=== PATIENT | male | born 1950 | race Caucasian/White ===

== ENCOUNTER 2017-08-14 10:49 | Outpatient (CLI) | payer MEDICARE ==
--- NOTE | 2017-08-14 12:38 | XRAY Report ---
THREE VIEW RIGHT HAND: 08/14/2017 CLINICAL INDICATION: Pain, trauma. FINDINGS: AP, lateral, and oblique views of the right hand demonstrate no evidence of acute fracture or dislocation. Osteoarthritis is present. No radiopaque foreign body is seen in the soft tissues. IMPRESSION: OSTEOARTHRITIS. JOB #: [id number] EXT JOB #:[id number]
== END 2017-08-14 10:50 | disposition home or self-care (01) ==
LOC: DI.S 10:49
PROVIDERS: ATTEND Physician Assistant
DX: M19.041 Primary osteoarthritis, right hand (principal)

== ENCOUNTER 2019-01-16 10:31 | Outpatient (CLI) | payer MEDICARE, OTHER ==
[2019-01-16] MEDS ORDERED: IOVERSOL 320 50 ML VIAL ONE (10:41)
[2019-01-16] MEDS ORDERED: IOPAMIDOL-300 100 ML VIAL ONE ×2 (10:41)
[2019-01-16 10:52] LABS: BASOPHILS % (AUTO) 0.9 %; EOSINOPHILS % (AUTO) 0.2 %; HGB - HEMOGLOBIN 14.3 g/dL (14.0-18.0); LYMPHOCYTES # (AUTO) 0.6 10^3/uL (1.5-3.5); LYMPHOCYTES % (AUTO) 10.6 %; MEAN CORPUSCULAR HEMOGLOBIN 29.1 pg (27.0-31.0); MEAN CORPUSCULAR HGB CONC 33.9 g/dL (32.0-36.0); MEAN CORPUSCULAR VOLUME 85.8 fL (80.0-94.0); MEAN PLATELET VOLUME 8.1 fL (7.4-11.4); MONOCYTES # (AUTO) 0.8 10^3/uL (0.0-1.0); MONOCYTES % (AUTO) 13.9 %; NEUTROPHILS # (AUTO) 4.3 10^3/uL (1.5-6.6); NEUTROPHILS % (AUTO) 74.4 %; PLT - PLATELET COUNT 188 10^3/uL (130-450); RED BLOOD COUNT 4.92 10^6/uL (4.70-6.10); RED CELL DISTRIBUTION WIDTH 13.8 % (12.0-15.0); WHITE BLOOD COUNT 5.8 x10^3/uL (4.8-10.8)
[2019-01-16 11:04] LABS: ALBUMIN 3.9 g/dL (3.2-5.5); ALBUMIN/GLOBULIN RATIO 1.1 (1.0-2.2); BILIRUBIN,TOTAL 0.8 mg/dL (0.2-1.0); TOTAL PROTEIN 7.3 g/dL (6.7-8.2)
[2019-01-16] MEDS ORDERED: IOPAMIDOL-300 100 ML VIAL IVP ONE (12:18)
[2019-01-16] MEDS ORDERED: IOVERSOL 320 50 ML VIAL PO ONE (12:19)
--- NOTE | 2019-01-16 12:47 | CT Report ---
Reason: ABDOMINAL PAIN,FATIGUE/MALAISE,CHANGE IN BOWEL HAB Procedure Date: 01/16/2019 Accession Number: [id number] / [id number] Procedure: CT - Abdomen/Pelvis W CPT Code: FULL RESULT: EXAM: CT ABDOMEN AND PELVIS EXAM DATE: 01/16/2019 12:15 PM. CLINICAL HISTORY: Abdominal pain, fatigue/malaise, change in bowel habits. COMPARISONS: None. TECHNIQUE: Routine helical CT imaging was performed through the abdomen and pelvis. IV contrast: 100 mL of Isovue-300 contrast. Enteric contrast: No. Reconstructions: Coronal and sagittal. In accordance with CT protocol optimization, one or more of the following dose reduction techniques were utilized for this exam: automated exposure control, adjustment of mA and/or KV based on patient size, or use of iterative reconstructive technique. FINDINGS: Lung Bases: Unremarkable. Liver: 15 mm water density cyst of the inferior right lobe of liver 28/3. No solid parenchymal lesions. Hepatic and portal veins are patent. Gallbladder/Bile Ducts: Gallbladder is surgically absent. There is no biliary ductal dilatation. Spleen: Normal. Pancreas: Normal. Adrenal Glands: Normal. Kidneys: Normal. No masses or hydronephrosis. Peritoneal Cavity/Bowel: Stomach and small bowel appear normal. There is diverticulosis noted of the descending and sigmoid colon. There is a thickening and inflammatory change measuring 2.5 cm surrounding a low rectosigmoid diverticulum just above the level of the urinary bladder, reference image 72 series 3, consistent with acute diverticulitis. No free air or focal fluid collection. The appendix is well visualized and normal. Pelvic Organs: Normal. The bladder and visualized pelvic organs are within normal limits. Vasculature: No aneurysms or other significant abnormality. Bones: No significant abnormality. Bilateral total hip arthroplasty components. Other: None. IMPRESSION: 1. Acute diverticulitis as described involving distal rectosigmoid colon. 2. Simple-appearing cyst within the liver incidentally noted. RADIA The call report notification system was initiated by Dr. Domingo David at 12:37 PM on 01/16/2019. The above call report findings were discussed with Nurse Patricia Posada by Dr. Domingo David at 12:45 PM on 01/16/2019.
== END 2019-01-16 10:32 | disposition home or self-care (01) ==
LOC: LAB 10:31
PROVIDERS: ATTEND Nurse Practitioner Family
DX: K57.32 Diverticulitis of large intestine without perforation or abscess without bleeding (principal); R10.32 Left lower quadrant pain; R53.83 Other fatigue; R19.4 Change in bowel habit
CPT/HCPCS: 36415; 74177; 80053; 85025; Q9967

== ENCOUNTER 2019-01-27 10:33 | Outpatient (CLI) | payer MEDICARE, OTHER ==
[2019-01-27] MEDS ORDERED: IOPAMIDOL-300 100 ML VIAL ONE (10:45)
[2019-01-27] MEDS ORDERED: IOPAMIDOL-300 50 ML VIAL ONE (10:45)
[2019-01-27] MEDS ORDERED: IOPAMIDOL-300 100 ML VIAL IVP ONE (11:57)
--- NOTE | 2019-01-27 15:48 | CT Report ---
Reason: DIVERTICULITIS OF SIGMOID COLON Procedure Date: 01/27/2019 Accession Number: [id number] / [id number] Procedure: CT - Abdomen/Pelvis W CPT Code: FULL RESULT: EXAM: CT ABDOMEN AND PELVIS EXAM DATE: 01/27/2019 11:55 AM. CLINICAL HISTORY: Diverticulitis of sigmoid colon. COMPARISONS: ABDOMEN/PELVIS W/ 01/16/2019 12:01 PM. TECHNIQUE: Routine helical CT imaging was performed through the abdomen and pelvis. IV contrast: 100 cc of Isovue-300 contrast. Enteric contrast: Yes. Reconstructions: Coronal and sagittal. In accordance with CT protocol optimization, one or more of the following dose reduction techniques were utilized for this exam: automated exposure control, adjustment of mA and/or KV based on patient size, or use of iterative reconstructive technique. FINDINGS: Lung Bases: Unremarkable. Liver: Stable 14 mm simple-appearing cyst of the inferior right lobe of liver. No solid lesions. Hepatic and portal veins are patent. Gallbladder/Bile Ducts: Gallbladder is surgically absent. There is no biliary ductal dilatation. Spleen: Normal. Pancreas: Normal. Adrenal Glands: Normal. Kidneys: Normal. No masses or hydronephrosis. Peritoneal Cavity/Bowel: Previous acute diverticulitis and surrounding inflammatory change has resolved by imaging in the interval. Previously inflamed diverticulum shows minimal residual wall thickening but no surrounding inflammatory change; reference series 3, axial images 71 through 73/series 5 coronal reconstruction image 39. There is stable diverticulosis noted elsewhere within the colon. Mild stool burden throughout. Stomach and small bowel appears normal. The appendix is well visualized and normal. Pelvic Organs: Normal. The bladder and visualized pelvic organs are within normal limits. Evaluation is slightly limited due to spray artifact from hip arthroplasty components. Vasculature: Not previously mentioned, there is mild aneurysmal dilatation of both common iliac arteries 16 mm on the right and 17 mm on the left. Bones: No significant abnormality. Other: None. IMPRESSION: 1. Near complete interval imaging resolution of acute sigmoid diverticulitis as described. 2. Mild aneurysmal dilatation of the common iliac arteries. 3. Stable simple appearing cyst inferior right lobe of liver. RADIA
== END 2019-01-27 10:34 | disposition home or self-care (01) ==
LOC: DI 10:33
PROVIDERS: ATTEND Nurse Practitioner Family
DX: K57.32 Diverticulitis of large intestine without perforation or abscess without bleeding (principal); I72.3 Aneurysm of iliac artery; K76.89 Other specified diseases of liver
CPT/HCPCS: 74177; Q9967

== ENCOUNTER 2019-01-30 14:07 | Outpatient (CLI) | payer MEDICARE, OTHER ==
--- NOTE | 2019-01-30 15:13 | XRAY Report ---
Reason: PAIN IN LT FOOT Procedure Date: 01/30/2019 Accession Number: [id number] / [id number] Procedure: XR - Foot 2 View LT CPT Code: FULL RESULT: EXAM: LEFT FOOT RADIOGRAPHY EXAM DATE: 01/30/2019 02:30 PM. CLINICAL HISTORY: Pain in left foot. COMPARISON: None. TECHNIQUE: 2 views. FINDINGS: Bones: Normal. No fractures or bone lesions. Joints: Normal. No subluxations. Soft Tissues: Normal. No soft tissue swelling. IMPRESSION: Normal foot radiography. RADIA
== END 2019-01-30 14:08 | disposition home or self-care (01) ==
LOC: DI 14:07
PROVIDERS: ATTEND Nurse Practitioner Family
DX: M79.672 Pain in left foot (principal)

== ENCOUNTER 2021-04-10 08:00 | Outpatient (CLI) | payer MEDICARE, OTHER | END 2021-04-10 23:59 | disposition home or self-care (01) | LOC: LAB.S 08:00 | PROVIDERS: ATTEND Emergency Medicine | DX: L03.012 Cellulitis of left finger (principal) | CPT/HCPCS: 87070; 87205 ==

== ENCOUNTER 2021-04-11 08:00 | Outpatient (CLI) | payer MEDICARE ==
--- NOTE | 2021-04-11 10:53 | XRAY Report ---
PROCEDURE: Finger(s) LT INDICATIONS: LACERATION OF LEFT MIDDLE FINGER TECHNIQUE: AP hand, 2 views of the third finger(s) acquired. COMPARISON: None FINDINGS: Bones: No fractures or dislocations. No suspicious bony lesions. Mild PIP and DIP joint osteophytic changes are seen. Soft tissues: No suspicious soft tissue calcifications. IMPRESSION: No acute third finger fracture or dislocation. No radiopaque foreign body is seen. Reviewed by: Ever Ramos MD on 04/11/2021 10:51 AM PDT Approved by: Ever Ramos MD on 04/11/2021 10:51 AM PDT Station ID: [id number]
== END 2021-04-11 23:59 | disposition home or self-care (01) ==
LOC: DI.S 08:00
PROVIDERS: ATTEND Physician Assistant
DX: S61.313A Laceration without foreign body of left middle finger with damage to nail, initial encounter (principal); L03.012 Cellulitis of left finger

== ENCOUNTER 2023-03-21 10:14 | Outpatient (CLI) | payer MEDICARE, OTHER ==
--- NOTE | 2023-03-21 11:36 | Sleep Patient Instructions ---
Sleep Center Visit Summary - Patient Visit Information Reason for Visit: Initial consult with patient on CPAP therapy - Patient Instructions Additional Instructions: You were here for follow up of CPAP therapy. You will be continued on CPAP therapy with pressure changed to 7-10.5 cmH2O. Please let us know if the pressure change is uncomfortable and we can make further adjustments of the pressure. An updated supply prescription will be sent to your DME supplier. We are also updating your CPAP. Please call to make follow up appointment once you have the new machine at home. You should follow up with sleep care one month after you get new device. You may contact us sooner for any questions or concerns. - Clinic Information Contact: [facility] [address] [place] [address] [email or web address] T: [phone]
--- NOTE | 2023-03-21 11:42 | SLEEP CARE CONSULTATION ---
Information from patient questionnaire entered by Mejia Caal. I have reviewed and concur with the information entered by Mejia Caal. This document represents the service I personally performed and the decisions made by me, Nitza Damico ARNP. History of Present Illness Service Date and Time: 03/21/2023 1014 Reason for Visit: New patient, sleep apnea on CPAP therapy Chief Complaint: reports: Unrefreshed sleep, Snoring Date of Onset: 10YRS Usual bedtime: 10-11PM Time it takes to fall asleep: 20MINS Snores at night: Yes Observed to quit breathing while asleep: Yes Reasons for waking at night: reports: Other (NIGHTMARES) Toss, Turn, or Twitch while sleeping: Yes Recalls having dreams: Yes Usually gets out of bed at: 8AM Feels refreshed in the morning: Yes Morning headache: No Sleepy or fatigued during the day: Yes Ever fallen asleep while driving: No Takes day naps: Yes Year and Where: 2009, 2015 [facility] Additional HPI information: PASCUAL CASTILLO was previously diagnosed to have moderate, AHI 25.9, obstructive sleep apnea-hypopnea syndrome as seen in PSG dated 11/29/2009 and PSG dated 12/12/2015, AHI 17.3, through [facility] and comes in today to establish care for CPAP therapy. His complaints are snoring and unrefreshed sleep prior to CPAP therapy. - Parasomnia Symptoms Ever been unable to move upon waking from sleep: No Walks in sleep: No Talks in sleep: No Ever acted out dreams in sleep: No Ever felt weak in the knees when startled or emotional: No Problems with memory or concentration: No CPAP Compliance Data - Data Reviewed with Patient Average duration of nightly device use: 9 hours 44 mins Compliance rate %: 96.1 (175/180 days used) Current pressure setting (cmH2O): 7-10 (90% avg 10) Average residual AHI: 7.4 Central apnea: 0.5 Obstructive apnea: 3.5 Hypopnea: 3.4 Average large leak: 35 mins 18 secs Compliance data discussion: He has a Flitto machine that is on recall and he has registered with [employer]. He is using a nasal cushion mask, [employer]wear by [employer]. He has got supplies from [employer] but in last 3-4 years has been getting supplies on [employer]. Subjective Initial [place] Sleepiness Scale score: 5 (03/21/23) Past Medical History Past Medical History: reports: GERD, Other (HYPERLIPIDEMIA ) Social History The patient's occupation is a RE. Patient is and lives in [place]. Have you smoked in the past 12 months: No Alcohol use: Yes Alcohol amount and frequency: rare Caffeine use: Yes Caffeine amount and frequency: 2 cups daily Family History Family history of sleep disordered breathing: No Allergies and Home Medications Known drug allergies: Yes (penicillins) Drug allergies reviewed: Yes Home medication list reviewed: Yes (see updated list in EMR) Allergy and home medication list: Allergies Penicillins Allergy (Verified 03/20/23 14:22) Unknown Review of Systems Weight gain over past 5 years: 10 Cardiovascular: denies: high blood pressure Gastrointestinal: reports: heartburn, other (DIVERTICULITIS) Neurological: denies: headaches Psychiatric: denies: anxiety, depression Musculoskeletal: reports: other (HIP PAIN) Physical Exam Vital signs obtained and entered by: MEJIA Gomes MA Blood Pressure: 112/68 (LEFT ARM) Cuff size: long Heart Rate: 68 O2 Saturation: 97 Height: 5 ft 8 in Weight: 189 lb Body Mass Index: 28.7 BMI Classification: Overweight Neck circumference: 16 Heart: regular rate and rhythm Lungs: clear bilaterally Impression and Plan 1. Obstructive Sleep Apnea-Hypopnea Syndrome, moderate, with good treatment compliance and good apnea control. On CPAP therapy, the patient has better sleep quality and is more rested overall. Patient has a DreamStation that has not yet been replaced by [employer]. He put his serial number in their patient portal and it said they needed an updated prescription. I will provide one for him and have it faxed to [employer]. He also would like to be set up with a new DME supplier. He has not been able to get supplies except through [employer] for 3 to 4 years. The patients pressure will be changed to autoCPAP 7-10.5 cmH20 for elevation of residual AHI. Patient advised to contact me if pressure change is uncomfortable so that it can be adjusted. Goals for apnea control discussed. I will have my online merchandising coordinator inform of DME options. A [facility] prescription will then be made. Patient advised to contact this office if further supply problems. The patients CPAP is over 5 years old and of reasonable use. Thus, the CPAP will be updated. A [facility] prescription will be made. Compliance guidelines for new device and follow up discussed.Patient's apnea severity and rationale for treatment to reduce apnea, improve sleep quality and reduce cardiovascular and cerebrovascular events was reviewed. I also reviewed the benefit of consistent device use of CPAP for gastric reflux. 2. Overweight, unspecified. Currently patients BMI is 28.7. Obesity increases the risk of apnea, CPAP pressure requirements and overall health risks especially cardiovascular and diabetes. Thus patient is advised to lose weight. * Change auto CPAP pressure to 7-10.5 cmH2O * Transfer DME * Update machine * Update supplies * Notify me if snoring with mask or feeling that the pressure is too much or too little * Attempt to lose weight * Call this office if any problems using CPAP * Return for follow up one month after obtaining new device, or sooner if concerns arise Counseling Topics: Spare mask, Weight loss health impact Visit Type: In Office Time Spent with Patient (minutes): 44 Provider Statement: I spent 100% of the Face to Face Visit with the patient with greater than 50% spent counseling the patient and coordination of care.
[2023-03-21 11:43] VITALS: BP 112/68
== END 2023-03-21 10:15 | disposition home or self-care (01) ==
LOC: SC 10:14
PROVIDERS: ATTEND Nurse Practitioner Family
DX: G47.33 Obstructive sleep apnea (adult) (pediatric) (principal); E66.3 Overweight; Z68.28 Body mass index [BMI] 28.0-28.9, adult
CPT/HCPCS: 99203; G0463; 99212

== ENCOUNTER 2024-03-25 08:56 | Outpatient (CLI) | payer MEDICARE, OTHER ==
--- NOTE | 2024-03-25 08:50 | SLEEP CARE CONSULTATION ---
Information from patient questionnaire entered by Kajal Caal. I have reviewed and concur with the information entered by Kajal Caal. This document represents the service I personally performed and the decisions made by me, Nitza Damico ARNP. History of Present Illness Service Date and Time: 03/25/2024 0840 Previous diagnosis: Moderate, Obstructive Sleep Apnea-Hypopnea Syndrome AHI: 17.3 (12/02/2015)(25.9 - 11/29/2009)) Reason for follow up: annual (LAST SEEN 02/2023) Equipment type: CPAP (RESMED Airsense 11, s/u 04/2023) Equipment obtained from: Other ([facility]; getting supplies) Mask style: Nasal Backup mask available: Yes Last cushion change: several months Year and Where: 2015 [facility] [place] [employer] HPI additional information: PASCUAL CASTILLO was diagnosed to have moderate, AHI 17.3, obstructive sleep apnea-hypopnea syndrome and returns via video appointment today for CPAP therapy annual follow-up. Sleep Study - Results Year and Where: 2015 [facility] [place] [facility] [facility] CPAP Compliance Data - Data Reviewed with Patient Average duration of nightly device use: 8 HRS 43 MINS Compliance rate %: 78 (03/20/03/18/24; 292/365 days used) Current pressure setting (cmH2O): 7-10.4 Average residual AHI: 2.7 Central apnea: 1.6 Obstructive apnea: 0.5 Hypopnea: 0.4 Average large leak: 7 L/min Subjective Missed days of use due to: reports: other (not sure) Patient concerns: reports: dry mouth, nose, throat (dry mouth but not often from oral venting). denies: aerophagia, mask discomfort, air blowing in eyes, mask leak noise, condensation in mask/hose, nasal congestion, epistaxis Current pressure setting perceived as: comfortable On therapy, patient: reports: sleeping better, awakening more refreshed, being more awake and alert during the day, more rested overall. denies: drowsiness while driving Initial [place] Sleepiness Scale score: 5 (03/21/23) Current [place] Sleepiness Scale score: 2 (03/25/24) Allergies and Home Medications Known drug allergies: Yes (as listed) Drug allergies reviewed: Yes Home medication list reviewed: Yes (no changes) Allergy and home medication list: Allergies Penicillins Allergy (Verified 03/19/24 11:07) Unknown Review of Systems Review of systems same as previous: Yes (NO CHANGE) Physical Exam Vital signs obtained and entered by: KAJAL Gomes MA Height: 5 ft 8 in (PER PT) Weight: 175 lb (PER PT) Body Mass Index: 26.6 BMI Classification: Overweight Impression and Plan 1. Obstructive Sleep Apnea-Hypopnea Syndrome, moderate, with good treatment compliance and good apnea control. On CPAP therapy, the patient has better sleep quality and is more rested overall. Patient has significant improvement of their sleep apnea and is satisfied with current CPAP therapy. Patient denies problems with oral dryness, nasal congestion, epistaxis, skin irritation or aerophagia. Patient's apnea severity and rationale for treatment to reduce apnea, improve sleep quality and reduce cardiovascular and cerebrovascular events was reviewed. I also reviewed the benefit of consistent device use of CPAP for gastric reflux. 2. Overweight, unspecified. Currently patients BMI is 26.6. Obesity increases the risk of apnea, CPAP pressure requirements and overall health risks especiall y cardiovascular and diabetes. Thus patient is advised to lose weight. * Continue auto CPAP pressure at 7-10.4 cmH2O * Update supply prescription. * Notify me if snoring with mask or feeling that the pressure is too much or too little * Attempt to lose weight * Call this office if any problems using CPAP * Return for follow up in 12 months, or sooner if concerns arise Adjust device pressure to (cmH2O): 7-10.4 Counseling Topics: Spare mask, Weight loss health impact Prescriptions: Device supplies Follow up with Sleep Care in: 1 year Visit Type: Telehealth Video Video Type: Millie Patient Location: Home Location of Provider: Office Patient agrees and consents to this telehealth visit type: Yes Time Spent with Patient (minutes): 13 Provider Statement: I spent 100% of the Telehealth Video Call with the patient with greater than 50% spent counseling the patient and coordination of care.
== END 2024-03-25 08:57 | disposition home or self-care (01) ==
LOC: SC 08:56
PROVIDERS: ATTEND Nurse Practitioner Family
DX: G47.33 Obstructive sleep apnea (adult) (pediatric) (principal); E66.3 Overweight; Z68.26 Body mass index [BMI] 26.0-26.9, adult

== ENCOUNTER 2024-04-17 08:00 | Outpatient (CLI) | payer MEDICARE, OTHER ==
--- NOTE | 2024-04-17 13:58 | XRAY Report ---
PROCEDURE: Thoracic Spine 3V INDICATIONS: THORACIC BACK PAIN TECHNIQUE: 3 views of the thoracic spine were acquired. COMPARISON: None. FINDINGS: Bones: No fractures or dislocations. No suspicious bony lesions. 12 pairs of ribs are noted, and a ppear intact where visualized. Mild levocurvature of the thoracic spine. Multilevel degenerative abbi nges of the thoracic spine are present. Diffusely decreased osseous position. Partially visualized AC DF. Soft tissues: No paravertebral stripe thickening. Right upper quadrant surgical clips. IMPRESSION: No vertebral compression deformities. Multilevel degenerative changes of the thoracic spine. Reviewed by: Ihsan Chapman MD on 04/17/2024 1:57 PM PDT Approved by: Ihsan Chapman MD on 04/17/2024 1:57 PM PDT Station ID: [id number]
== END 2024-04-17 23:59 | disposition home or self-care (01) ==
LOC: DI.S 08:00
PROVIDERS: ATTEND Physician Assistant Medical
DX: M47.814 Spondylosis without myelopathy or radiculopathy, thoracic region (principal)